=== PATIENT | female | born 1985 | race Hispanic/Latino ===

== ENCOUNTER 2019-06-11 00:58 | Emergency (ER) | payer SELFPAY ==
[2019-06-11] MEDS ORDERED: MORPHINE 4 MG/ML SYR ONE (01:26)
[2019-06-11] MEDS ORDERED: ONDANSETRON 4 MG/2 ML VIAL ONE (01:26)
[2019-06-11] MEDS ORDERED: PROPOFOL 200 MG/20 ML VIAL IV ONE (01:44)
[2019-06-11] MEDS ORDERED: NA CHLORIDE 0.9% 1,000 ML ONE (01:44)
--- NOTE | 2019-06-11 02:38 | ER ---
Nurse's Notes [facility] Name: Zee Elizondo Age: 34 yrs Sex: Female : 1985 Arrival Date: 06/11/2019 Time: 01:02 Bed 20 Private MD: Diagnosis: Trimalleolar fracture of lower leg;Dislocation of right ankle joint Presentation: 06/11 01:16 Presenting complaint: Patient states: "I was trying to stop my dogs from fighting and I jd3 guess I stepped in a hole or something and heard a pop in my right ankle and fell. I also got bit by one of the dogs on my left arm.". Transition of care: patient was not received from another setting of care. Onset of symptoms was June 11, 2019. Risk Assessment: Do you want to hurt yourself or someone else? Patient reports no desire to harm self or others. Initial Sepsis Screen: Does the patient meet any 2 criteria? No. Patient's initial sepsis screen is negative. Does the patient have a suspected source of infection? No. Patient's initial sepsis screen is negative. Care prior to arrival: None. 01:16 Method Of Arrival: Wheelchair jd3 01:16 Acuity: RAMESH 3 jd3 NET C DEVELOPER: 03:21 LMP N/A - control method jd3 Historical: - Allergies: 01:19 Seroquel; jd3 - Home Meds: 01:19 None [Active]; jd3 - PMHx: 01:19 Hypertension; jd3 - PSHx: 01:19 Tonsillectomy; jd3 - Immunization history:: Adult Immunizations up to date, Last tetanus immunization: up to date. - Social history:: Smoking status: Patient uses tobacco products, smokes one pack cigarettes per day. - Ebola Screening: : Patient negative for fever greater than or equal to 101.5 degrees Fahrenheit, and additional compatible Ebola Virus Disease symptoms. - Family history:: not pertinent. - Hospitalizations: : No recent hospitalization is reported. Screenin:21 Abuse screen: Denies threats or abuse. Nutritional screening: No deficits noted. jd3 Tuberculosis screening: No symptoms or risk factors identified. Fall Risk Fall in past 12 months (25 points). Secondary diagnosis (15 points) impaired mobility, IV access (20 points). Ambulatory Aid- None/Bed Rest/Nurse Assist (0 pts). Gait- Normal/Bed Rest/Wheelchair (0 pts) Mental Status- Oriented to own ability (0 pts). Total Ocampo Fall Scale indicates High Risk Score (45 or more points). Fall prevention measures have been instituted. Side Rails Up X 2 Placed Close to Nursing Station Frequent Obs/Assessments Occuring Family Present and informed to notify staff if the need to leave the bedside. Assessment: 01:15 General: Appears in no apparent distress. uncomfortable, Behavior is calm, cooperative, jd3 appropriate for age. Pain: Complains of pain in right ankle Quality of pain is described as sharp, tender. Neuro: Level of Consciousness is awake, alert, obeys commands, Oriented to person, place, time, situation. Cardiovascular: Denies chest pain, Capillary refill < 3 seconds Patient's skin is warm and dry. Respiratory: Airway is patent Respiratory effort is even, unlabored, Respiratory pattern is regular, symmetrical, Denies cough, shortness of breath. GI: No signs and/or symptoms were reported involving the gastrointestinal system. : No signs and/or symptoms were reported regarding the genitourinary system. EENT: No signs and/or symptoms were reported regarding the EENT system. Derm: Skin is intact, Skin is dry, Skin is normal, Skin temperature is warm Wound noted palmar aspect of left forearm Other: laceration noted that is <5 cm. reported getting injury from a dog bite. Musculoskeletal: Circulation, motion, and sensation intact. Range of motion: limited in right ankle Bony deformity noted of right ankle. 02:22 Reassessment: Patient appears in no apparent distress at this time. Patient and/or jd3 family updated on plan of care and expected duration. Pain level reassessed. Patient is alert, oriented x 3, equal unlabored respirations, skin warm/dry/pink. pt resting in bed comfortably. IV with no redness or swelling noted. Patient states feeling better. Vital Signs: 01:19 BP 106 / 78; Pulse 82; Resp 19 S; Temp 97.6(O); Pulse Ox 100% on R/A; Weight 84.82 kg jd3 (R); Height 5 ft. 0 in. (152.40 cm) (R); Pain 10/10; 02:21 BP 131 / 84; Pulse 72; Resp 14 S; Pulse Ox 100% on 2 lpm NC; Pain 0/10; jd3 03:21 BP 139 / 76; Pulse 74; Resp 17 S; Pulse Ox 100% on R/A; jd3 01:19 Body Mass Index 36.52 (84.82 kg, 152.40 cm) jd3 ED Course: 01:02 Patient arrived in ED. am2 01:05 Jas Roy MD is Attending Physician. rn 01:16 Mirza Bernal RN is Primary Nurse. jd3 01:18 Triage completed. jd3 01:20 Arm band placed on. jd3 01:30 Inserted saline lock: 20 gauge in right antecubital area, using aseptic technique. jd3 02:00 Orthoglass splint: Posterior short lleg splint applied on right leg. stirrup splint oe applied on right leg. 02:21 Patient has correct armband on for positive identification. Placed in gown. Bed in low jd3 position. Call light in reach. Side rails up X2. Adult w/ patient. 02:29 XRAY Ankle RIGHT 3 view In Process Unspecified. EDMS 02:29 Ankle Right 2 View In Process Unspecified. EDMS 02:34 Tung Cohen MD is Referral Physician. rn 03:18 Assist provider with reduction of right ankle using manipulation, Set up for procedure. jd3 Performed by Jas Roy MD Immobilized with OCL splint, Patient tolerated well. 03:20 IV discontinued, intact, bleeding controlled, No redness/swelling at site. Pressure jd3 dressing applied. Administered Medications: 01:37 Drug: Zofran 4 mg Route: IVP; Site: right antecubital; jd3 02:35 Follow up: Response: No adverse reaction jd3 01:38 Drug: morphine 4 mg Route: IVP; Site: right antecubital; jd3 02:35 Follow up: Response: No adverse reaction; RASS: Alert and Calm (0) jd3 01:55 Drug: Propofol 80 mg {Note: administered by Ivanna RANGEL.} Route: IVP; Site: right jd3 antecubital; 02:52 Follow up: Response: No adverse reaction jd3 Outcome: 02:34 Discharge ordered by . rn 03:21 Discharged to home via wheelchair, with crutches, with family. jd3 03:21 Condition: stable 03:21 Discharge instructions given to patient, family, Instructed on discharge instructions, follow up and referral plans. medication usage, crutch walking, Demonstrated understanding of instructions, follow-up care, medications, crutch walking, Prescriptions given X 2. 03:22 Patient left the ED. jd3 Signatures: Dispatcher [employer] EDMS Jas Roy MD MD rn Espinosa, Eleni Madrigal Jonathon, RN RN jd3 Corrections: (The following items were deleted from the chart) 02:39 02:36 Orthoglass splint: Posterior short lleg splint applied on oe oe
--- NOTE | 2019-06-11 02:38 | EDPHYS ---
Physician Documentation [facility] Name: Zee Elizondo Age: 34 yrs Sex: Female : 1985 Arrival Date: 06/11/2019 Time: 01:02 Bed 20 Private MD: ED Physician Jas Roy HPI: 06/11 01:24 This 34 yrs old Unknown Female presents to ER via Wheelchair with complaints of Ankle rn Injury. 01:24 The patient presents with an injury, pain. The complaints affect the right ankle. rn Onset: The symptoms/episode began/occurred just prior to arrival. Modifying factors: The symptoms are alleviated by nothing, the symptoms are aggravated by movement. Severity of symptoms: At their worst the symptoms were moderate, in the emergency department the symptoms are unchanged. The patient has not experienced similar symptoms in the past. Breaking up dog fight, rolled her right ankle, hurts to move, + swelling, denies other injuries. . BIT SANDER: 03:21 LMP N/A - control method jd3 Historical: - Allergies: 01:19 Seroquel; jd3 - Home Meds: 01:19 None [Active]; jd3 - PMHx: 01:19 Hypertension; jd3 - PSHx: 01:19 Tonsillectomy; jd3 - Immunization history:: Adult Immunizations up to date, Last tetanus immunization: up to date. - Social history:: Smoking status: Patient uses tobacco products, smokes one pack cigarettes per day. - Ebola Screening: : Patient negative for fever greater than or equal to 101.5 degrees Fahrenheit, and additional compatible Ebola Virus Disease symptoms. - Family history:: not pertinent. - Hospitalizations: : No recent hospitalization is reported. ROS: 01:24 Constitutional: Negative for fever, chills, and weight loss, Neck: Negative for injury, rn pain, and swelling, Cardiovascular: Negative for chest pain, palpitations, and edema, Respiratory: Negative for shortness of breath, cough, wheezing, and pleuritic chest pain, Abdomen/GI: Negative for abdominal pain, nausea, vomiting, diarrhea, and constipation, Back: Negative for injury and pain, MS/Extremity: + right ankle pain Skin: Negative for injury, rash, and discoloration, Neuro: Negative for headache, weakness, numbness, tingling, and seizure. Exam: 01:24 Constitutional: This is a well developed, well nourished patient who is awake, alert, rn holding right ankle in hands, yelling for pain meds. Head/Face: Normocephalic, atraumatic. Eyes: Pupils equal round and reactive to light, extra-ocular motions intact. Lids and lashes normal. Conjunctiva and sclera are non-icteric and not injected. Cornea within normal limits. Periorbital areas with no swelling, redness, or edema. ENT: NO oral trauma Neck: NO midline tenderness Chest/axilla: Normal chest wall appearance and motion. Nontender with no deformity. Cardiovascular: Regular rate and rhythm. No pulse deficits. Respiratory: No increased work of breathing, no retractions or nasal flaring. Back: No spinal tenderness. No costovertebral tenderness. Full range of motion. MS/ Extremity: Pulses equal, no cyanosis. + right ankle swelling, no focal bony tenderness, distal pulses intact and normal cap refill. Abrasions to left elbow and posterior arm. Neuro: Awake and alert, GCS 15, oriented to person, place, time, and situation. Cranial nerves II-XII grossly intact. Motor strength 5/5 in all extremities. Sensory grossly intact. Cerebellar exam normal. Vital Signs: 01:19 BP 106 / 78; Pulse 82; Resp 19 S; Temp 97.6(O); Pulse Ox 100% on R/A; Weight 84.82 kg jd3 (R); Height 5 ft. 0 in. (152.40 cm) (R); Pain 10/10; 02:21 BP 131 / 84; Pulse 72; Resp 14 S; Pulse Ox 100% on 2 lpm NC; Pain 0/10; jd3 03:21 BP 139 / 76; Pulse 74; Resp 17 S; Pulse Ox 100% on R/A; jd3 01:19 Body Mass Index 36.52 (84.82 kg, 152.40 cm) jd3 Procedures: 02:09 Splinting: Splint applied to right ankle using Posterior and stirrup. applied by rn myself. post reduction film - reveals improved alignment, Examined by me, post splint application: neurovascular intact, 2+ distal pulses palpable, brisk capillary refill noted, Patient tolerated well. Reduction: of the right ankle, using traction, manipulation, Immobilized with orthoglass stirrup and posterior splint. Patient tolerated well. Post reduction film - reveals improved alignment. Moderate sedation: Pre-procedure assessment: the patient has been NPO 4 hour(s) prior to arrival, ASA physical classification: I - healthy, no underlying organic disease, Airway assessment: able to hyperextend neck, able to maintain airway, can open mouth without difficulty, Monitoring during procedure: clay washer, continuous pulse oximetry, nurse at bedside at all times, Medications employed: propofol, Post-procedure assessment: the patient is not sedated, Respiratory status: even and unlabored, a reversal agent was not used. Laceration: 02:41 Wound Repair of 2cm ( 0.8in ) subcutaneous laceration to left proximal forearm. Distal rn neuro/vascular/tendon intact. Wound prep: Extensive cleansing by nurse, Wound irrigation by nurse, Wound explored. Skin closed with 2 35W Ellis using staple gun. Patient tolerated well. MDM: 01:06 Patient medically screened. rn 02:33 ED course: Consulted with Dr. Cohen, states ok to f/u in clinic non weight-bearing. rn Return precautions given and understood.. 02:35 Differential diagnosis: fracture, dislocation. Data reviewed: vital signs, nurses rn notes, radiologic studies, plain films, and as a result, I will discharge patient. Test interpretation: by ED physician or midlevel provider: plain radiologic studies, Xray right ankle shows acute, closed, trimalleolar fracture with posterior dislocation.. Counseling: I had a detailed discussion with the patient and/or guardian regarding: the historical points, exam findings, and any diagnostic results supporting the discharge/admit diagnosis, radiology results, the need for outpatient follow up, to return to the emergency department if symptoms worsen or persist or if there are any questions or concerns that arise at home. Response to treatment: the patient's symptoms have markedly improved after treatment, and as a result, I will discharge patient. 06/11 02:14 Order name: XRAY Ankle RIGHT 3 view rn 06/11 02:25 Order name: Ankle Right 2 View EDMS 06/11 01:07 Order name: IV Start; Complete Time: 01:38 rn 06/11 01:07 Order name: NPO; Complete Time: 01:20 rn 06/11 02:30 Order name: Crutches; Complete Time: 03:18 rn Administered Medications: 01:37 Drug: Zofran 4 mg Route: IVP; Site: right antecubital; jd3 02:35 Follow up: Response: No adverse reaction jd3 01:38 Drug: morphine 4 mg Route: IVP; Site: right antecubital; jd3 02:35 Follow up: Response: No adverse reaction; RASS: Alert and Calm (0) jd3 01:55 Drug: Propofol 80 mg {Note: administered by Ivanna RANGEL.} Route: IVP; Site: right jd3 antecubital; 02:52 Follow up: Response: No adverse reaction jd3 Disposition: 06/11/19 02:34 Discharged to Home. Impression: Trimalleolar fracture of lower leg, Dislocation of right ankle joint. - Condition is Stable. - Discharge Instructions: Cast or Splint Care, Adult, Crutch Use, Closed Reduction for Ankle Fracture or Dislocation. - Prescriptions for Ibuprofen 800 mg Oral Tablet - take 1 tablet by ORAL route every 12 hours As needed take with food; 20 tablet. Tylenol- Codeine #3 300-30 mg Oral Tablet - take 2 tablets by ORAL route every 6 hours As needed; 20 tablet. - Medication Reconciliation Form, Thank You Letter, Antibiotic Education, Prescription Opioid Use form. - Follow up: Dr. Tung Cohen; When: 2 - 3 days; Reason: Recheck today's complaints, Re-evaluation by your physician. - Problem is new. - Symptoms have improved. Signatures: Dispatcher [employer] [facility] Jas Roy MD MD rn Davies, Jonathon, RN RN jd3 Corrections: (The following items were deleted from the chart) 02:25 01:07 Ankle Right 3 View+[email or web address] ordered. [facility] 03:22 02:34 06/11/2019 02:34 Discharged to Home. Impression: Trimalleolar fracture of lower jd3 leg; Dislocation of right ankle joint. Condition is Stable. Discharge Instructions: Closed Reduction for Ankle Fracture or Dislocation, Cast or Splint Care, Adult, Crutch Use. Prescriptions for Ibuprofen 800 mg Oral Tablet - take 1 tablet by ORAL route every 12 hours As needed take with food; 20 tablet, Tylenol-Codeine #3 300-30 mg Oral Tablet - take 2 tablets by ORAL route every 6 hours As needed; 20 tablet. and Forms are Medication Reconciliation Form, Thank You Letter, Antibiotic Education, Prescription Opioid Use. Follow up: Dr. Tung Cohen; When: 2 - 3 days; Reason: Recheck today's complaints, Re-evaluation by your physician. Problem is new. Symptoms have improved. rn
--- NOTE | 2019-06-11 10:57 | RAD REPORT ---
EXAM DESCRIPTION: RAD - Ankle Right 2 View - 06/11/2019 2:28 am CLINICAL HISTORY: Right ankle pain status post injury FINDINGS: Posterior right ankle dislocation. Avulsion fracture medial malleolus. Mildly displaced fracture lateral malleolus. Definite posterior m alleolar fracture is not seen although evaluation is limited secondary to adjacent overlying fracture fragment on the lateral view
--- NOTE | 2019-06-11 10:59 | RAD REPORT ---
EXAM DESCRIPTION: RAD - Ankle Right 3 View - 06/11/2019 2:28 am CLINICAL HISTORY: Right ankle pain FINDINGS: Reduction of the ankle dislocation Fibular and tibial fractures again noted
== END 2019-06-11 03:22 | disposition home or self-care (01) ==
LOC: ER 00:58
PROC: 0JQH0ZZ Repair Left Lower Arm Subcutaneous Tissue and Fascia, Open Approach (ICD-10-PCS; principal; 2019-06-11)
PROC: 0QSGXZZ Reposition Right Tibia, External Approach (ICD-10-PCS; 2019-06-11)
DX: S82.851A Displaced trimalleolar fracture of right lower leg, initial encounter for closed fracture (principal); S93.04XA Dislocation of right ankle joint, initial encounter; W17.89XA Other fall from one level to another, initial encounter; Y93.89 Activity, other specified; Y92.9 Unspecified place or not applicable; Z88.8 Allergy status to other drugs, medicaments and biological substances
CPT/HCPCS: 96374; 96375; 99285; J2405; J2704; J7030